=== PATIENT | female | born 1945 | race Caucasian/White ===

== ENCOUNTER 2016-07-13 21:52 | Observation (INO) | payer MEDICARE ==
[2016-07-13] MEDS ORDERED: Acetaminophen TAB* 325 MG PO PRN (23:40)
[2016-07-13] MEDS ORDERED: Morphine INJ* 2 MG/ML 1 ML CARPUJECT IV PRN (23:40)
[2016-07-13] MEDS ORDERED: Senna TAB PO PRN (23:40)
[2016-07-13] MEDS ORDERED: Ondansetron INJ* 2 MG/ML VIAL IV PRN (23:40)
[2016-07-13] MEDS ORDERED: Al Hydrox/Mg Hydrox/Simet LIQ* 30 ML UDC PO PRN (23:40)
[2016-07-13] MEDS ORDERED: Docusate CAP* 100 MG PO PRN (23:40)
[2016-07-13] MEDS ORDERED: Atorvastatin* 80 MG TAB PO ONE (23:45)
[2016-07-14 05:30] LABS: Hematocrit 36 % (35-47); Hemoglobin 12.1 g/dl (12.0-16.0); Mean Corpuscular HGB Conc 33 g/dl (31-36); Mean Corpuscular Hemoglobin 29 pg (27-31); Mean Corpuscular Volume 86 fL (80-97); Mean Platelet Volume 10 um3 (7.4-10.4); Red Blood Count 4.21 10^6/ul (4.0-5.4); Red Cell Distribution Width 14 % (10.5-15); White Blood Count 6.3 10^3/ul (3.5-10.8)
[2016-07-14 05:47] LABS: BUN/Creatinine Ratio 21.2 (8-20); EGFR African American 67.2 (>60); EGFR Non-African American 52.2 (>60); HDL Cholesterol 36.9 mg/dL; Magnesium 1.8 mg/dL (1.9-2.7); Potassium 4.2 mmol/L (3.5-5.0)
[2016-07-14 05:50] LABS: Troponin I 0.01 ng/mL (<0.04)
--- NOTE | 2016-07-14 07:26 | HP ---
HISTORY AND PHYSICAL: DATE OF ADMISSION: 07/13/16 TIME OF EVALUATION: 2300. PRIMARY CARE PHYSICIAN: Dalila Carter DO. CHIEF COMPLAINT: Chest pain. HISTORY OF PRESENT ILLNESS: This is a 70-year-old female with past medical history of coronary artery disease status post NC and PCI in August 2015, who presents from the emergency room of [facility] for ongoing chest pain and requiring an inpatient stress test. The patient was at [facility] and admitted there for ongoing chest pain. She ruled out based on EKG and troponin, but she continued to have recurrent chest pain, today it was worse. The [facility] physician, Dr. Chapman, called Dr. Duran and Dr. Syed who recommended direct admission for stress test in the morning. The patient was given morphine and a nitro paste, her chest pain has since resolved and on arrival here she denies any chest pain at this time. She states her chest pain began 4 days ago and also in her back, which was similar symptoms to when she had her NC back in August. When it started, she was sitting with her friend, it has been ongoing on and off for the past 4 days. Nothing seems to make it worse. Morphine does seem to help it; however, today the morphine did not take the edge off and nitro paste was required. The patient denies any shortness of breath. She says it is hard to take a deep breath. She has had some nausea. No diaphoresis. She denies any URI symptoms. No fevers or chills. She denies any recent exertional activity. She had increasing gas and burping a few days ago, otherwise review of systems is negative. PAST MEDICAL HISTORY: 1. Coronary artery disease status post NC in August 2015, requiring PCI with a drug-eluting stent to the mid LAD with Dr. Gonsales. She is followed by Dr. Keith. 2. Hypertension. 3. Hyperlipidemia. 4. History of atrial flutter. 5. 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 6. History of breast cancer status post left mastectomy. 7. Depression. MEDICATIONS: 1. Coumadin 5 mg daily except Sunday and it is 7.5 mg. 2. Lisinopril 5 mg daily. 3. Plavix 75 mg daily. 4. Acebutolol 200 mg p.o. b.i.d. 5. Zoloft 25 mg p.o. daily. 6. Atorvastatin 80 mg daily. 7. Aspirin 81 mg daily. ALLERGIES: CALCIUM CHANNEL BLOCKERS and CONTRAST. FAMILY HISTORY: Mother at age 93 from old age. Father at age 62 from an NC. SOCIAL HISTORY: The patient is recently . Her from cancer in August 2015. Her healthcare proxy is her daughter, Irasema Del Valle, phone number [phone]. She does have 3 children. She is a retired nurse. No history of tobacco, alcohol, or illicit drug use. Code status is full code. REVIEW OF SYSTEMS: As mentioned in the HPI. PHYSICAL EXAMINATION GENERAL: No acute distress, resting comfortably with her daughter at the bedside. VITAL SIGNS: Not currently added in the system. HEENT: Pupils equal and reactive. Anicteric. Head is normocephalic. Oropharynx: Mucous membranes are moist. No erythema or exudate. NECK: Supple. No lymphadenopathy. RESPIRATORY: Clear to auscultation. No wheezes, rhonchi, or rales. CARDIAC: Regular rate and rhythm. Soft systolic murmur heard throughout. ABDOMEN: Soft, nontender, nondistended. EXTREMITIES: No clubbing, cyanosis, or edema. +1 DPs. NEUROLOGIC: Alert and oriented x3. No focal neurologic deficits. LABORATORY DATA: From 07/13/16 from [place]: White count 6.5, hemoglobin 14.4, hematocrit 43, platelets 259. INR 1.99. Urinalysis was unremarkable. Sodium 135, potassium 4, chloride 98, bicarb 29, BUN 20, creatinine 1.2, glucose 111, troponin 0.01. LDL 127, triglycerides 218, total cholesterol 213. RADIOGRAPHIC DATA: Chest x-ray from 07/13/16 showed no active disease. EKG from [place] shows sinus rhythm with flattened T waves and inverted T waves that are unchanged from her EKG on arrival here as well, which also showed sinus rhythm. ASSESSMENT AND PLAN: This is a 70-year-old female with past medical history of coronary artery disease status post chu-LD-emvtapt myocardial infarction with a drug-eluting stent to her left anterior descending back in August 2015, who presents with recurrent atypical chest pain. Chest pain. Assessment: The patient's symptoms are atypical. She is currently chest pain free. Her EKG is unremarkable at this time. Plan: We will repeat a troponin now and in the morning. We will keep her n.p.o. after midnight for her stress test and continue her cardiac medications, which include aspirin, Plavix, acebutolol, lisinopril and her Coumadin. CHRONIC MEDICAL PROBLEMS: 1. History of atrial flutter and question of a left ventricular thrombus. Assessment: It appears that she had an echo back in May 2016 that did not visualize a thrombus. She is on aspirin, Plavix, and Coumadin. I would recommend following with Cardiology regarding continuing Coumadin if she has remained in sinus and no thrombus seen on echo. 2. Hypertension. As mentioned, continue acebutolol and lisinopril. 3. Depression. Continue Zoloft. 4. Hyperlipidemia. We will continue her atorvastatin. 5. FEN: N.p.o. after midnight. 6. DVT prophylaxis. The patient is on Coumadin. 7. Code status: Full code. PATIENT TIME: Greater than 30 minutes was spent doing the history and physical , more than half the time was spent in direct patient contact. CC: Dalila Carter DO* [id number]/CPS #: [id number] MTDAndre
[2016-07-14] MEDS ORDERED: Lisinopril TAB* 5 MG PO SCH (09:00)
[2016-07-14] MEDS ORDERED: Sertraline* 25 MG TAB PO SCH (09:00)
[2016-07-14] MEDS ORDERED: Aspirin EC Low Dose* 81 MG TAB.EC PO SCH (09:00)
[2016-07-14] MEDS ORDERED: ACEBUTOLOL 200 MG PO SCH (09:00)
[2016-07-14] MEDS ORDERED: Clopidogrel TAB* 75 MG PO SCH (09:00)
[2016-07-14] MEDS ORDERED: Aminophylline IV* 25 MG/ML 10 ML VIAL ONE (09:03)
[2016-07-14] MEDS ORDERED: Regadenoson* 0.4 MG/5 ML SYRINGE ONE (09:03)
--- NOTE | 2016-07-14 09:45 | RAD ---
Edited for charges. Indication: Chest pain. Myocardial perfusion scan was performed utilizing 1 day protocol. Rest myocardial perfusion was performed after intravenous injection of 10.8 mCi of technetium 99m tetrofosmin. Pharmacological stress was applied and 25.1 mCi of technetium 99m tetrofosmin was injected for the stress portion of the study. There is a moderate-sized apical defect noted on the rest and stress images extending into the anterior wall. There is some reversible change at the margins of this fixed defect and this likely represents a anterior apical infarct with margaret-infarct ischemia. The ejection fraction at stress is 51%. Evaluation of wall motion demonstrates anteroapical hypokinesis. IMPRESSION: Moderate-sized apical defect extending into the anterior wall consistent with anterior apical infarct with margaret-infarct ischemia. There may be some paradoxical motion of the apex. ASSESSMENT: Intermediate risk Based on imaging criteria from ACC/AHA 2002 Guideline Update for the Management of Patients With Chronic Stable Angina Table 23. Noninvasive Risk Stratification. MTDD
[2016-07-14 11:28] VITALS: BP 136/74
--- NOTE | 2016-07-14 14:28 | PN ---
Subjective Date of Service: 07/14/16 Interval History: Pt is feeling ok. She states that the chest pain has essentially resolved. She has no other complaints. Objective Active Medications: Acebutolol HCl (Sectral Cap*) 200 mg PO BID [facility] Last Admin: 07/14/16 10:16 Dose: 200 mg Acetaminophen (Tylenol Tab*) 650 mg PO Q4H PRN PRN Reason: FEVER/PAIN Al Hydrox/Mg Hydrox/Simethicone (Maalox Plus*) 30 ml PO Q6H PRN PRN Reason: INDIGESTION Aspirin (Aspirin Ec Low Dose*) 81 mg PO DAILY [facility] Last Admin: 07/14/16 10:15 Dose: 81 mg Clopidogrel Bisulfate (Plavix Tab*) 75 mg PO DAILY [facility] Last Admin: 07/14/16 10:15 Dose: 75 mg Docusate Sodium (Colace Cap*) 100 mg PO BID PRN PRN Reason: CONSTIPATION Lisinopril (Prinivil Tab*) 5 mg PO DAILY [facility] Last Admin: 07/14/16 10:15 Dose: 5 mg Morphine Sulfate (Morphine Inj (Syringe)*) 2 mg IV Q4H PRN PRN Reason: PAIN Ondansetron HCl (Zofran Inj*) 4 mg IV Q4H PRN PRN Reason: NAUSEA/VOMITING Pharmacy Profile Note (Coumadin Per Pharmacy*) 1 note FOLLOW UP .PER PHARMACY PROTOC [facility] PRN Reason: Protocol Senna (Senokot Tab*) 1 tab PO BID PRN PRN Reason: CONSTIPATION Sertraline HCl (Zoloft*) 25 mg PO DAILY [facility] Last Admin: 07/14/16 10:16 Dose: 25 mg Warfarin Sodium (Coumadin Tab(*)) 5 mg PO SuMoWeFrSa@1700 [facility] PRN Reason: Protocol Warfarin Sodium (Coumadin Tab(*)) 7.5 mg PO TuTh@1700 [facility] Vital Signs 07/13/16 07/13/16 07/14/16 23:30 23:40 00:33 Temperature 97.7 F 97.8 F Pulse Rate 66 72 Respiratory 18 16 Rate Blood Pressure 100/70 110/75 96/53 (mmHg) O2 Sat by Pulse 95 94 Oximetry 07/14/16 07/14/16 07/14/16 01:00 03:32 07:19 Temperature 97.5 F 98.2 F Pulse Rate 69 71 Respiratory 16 20 Rate Blood Pressure 110/75 97/54 133/65 (mmHg) O2 Sat by Pulse 93 97 Oximetry 07/14/16 10:53 Temperature 97.8 F Pulse Rate 77 Respiratory 18 Rate Blood Pressure 136/74 (mmHg) O2 Sat by Pulse 95 Oximetry Oxygen Devices in Use Now: None Appearance: Elderly female sitting up in bed, NAD Eyes: No Scleral Icterus Ears/Nose/Mouth/Throat: Mucous Membranes Moist Respiratory: Symmetrical Chest Expansion and Respiratory Effort, Clear to Auscultation Cardiovascular: NL Sounds; No Murmurs; No JVD, RRR, No Edema Abdominal: NL Sounds; No Tenderness; No Distention Extremities: No Clubbing, Cyanosis Skin: No Rash or Ulcers, No Nodules or Sclerosis Neurological: Alert and Oriented x 3 Result Diagrams: 07/14/16 04:58 07/14/16 04:58 Assess/Plan/Problems-Billing Ms Chopra is a 70 yo F who has a h/o CAD (s/p NM 08/2015 with stent to the LAD), HTN, hyperlipidemia and aflutter who presented to the ER at [place] with c/o chest pain that had been off and on for 4 days prior to admission and then transferred to [facility] for further evaluation. - Patient Problems (1) Chest pain Current Visit: Yes Status: Acute Code(s): R07.9 - CHEST PAIN, UNSPECIFIED SNOMED Code(s): 18751664 Comment: Etiology is unclear. Stress test was negative for ischemia. Old infarct was noted though this was c/w her previous NM. She will continue on her usual home regimen and follow up with Dr. Keith in 1-2 weeks. (2) CAD (coronary artery disease) Current Visit: Yes Status: Acute Code(s): I25.10 - ATHSCL HEART DISEASE OF [place] CORONARY ARTERY W/O ANG PCTRS SNOMED Code(s): 95759886 Comment: No signs of NM this admission. Continue home medication regimen. Follow up with Dr. Keith as an outpatient. (3) Hypertension Current Visit: Yes Status: Acute Code(s): I10 - ESSENTIAL (PRIMARY) HYPERTENSION SNOMED Code(s): 59753401 Comment: BP is under good control on her home regimen. Continue to monitor. (4) Atrial flutter Current Visit: Yes Status: Acute Code(s): I48.92 - UNSPECIFIED ATRIAL FLUTTER SNOMED Code(s): 3676544 Comment: No signs of aflutter this admission. Continue coumadin-INR is therapeutic. (5) DVT prophylaxis Current Visit: Yes Status: Acute Code(s): HDF5917 - SNOMED Code(s): 129632699 Comment: therapeutic INR (6) Full code status Current Visit: Yes Status: Acute Code(s): Z78.9 - OTHER SPECIFIED HEALTH STATUS SNOMED Code(s): 588184274 Status and Disposition: d/c home
[2016-07-14] MEDS ORDERED: Warfarin TAB(*) 5 MG PO SCH (17:00)
--- NOTE | 2016-07-15 14:11 | DS ---
DISCHARGE SUMMARY: DATE OF ADMISSION: 07/13/16 DATE OF DISCHARGE: 07/14/16 PRIMARY CARE PROVIDER: Dr. Carter. PRINCIPAL DIAGNOSIS: Chest pain of unclear etiology. SECONDARY DIAGNOSES: 1. Atrial flutter. 2. Hypertension. 3. Coronary artery disease. 4. Depression. DISCHARGE MEDICATIONS: 1. Coumadin 7.5 mg p.o. Sunday, ; 5 mg all other days of the week. 2. Lisinopril 10 mg p.o. daily. 3. Lipitor 80 mg p.o. daily. 4. Aspirin 81 mg p.o. daily. 5. Sectral 200 mg p.o. daily. 6. Zoloft 25 mg p.o. daily. 7. Ativan 0.25 mg p.o. q.12 hours p.r.n. anxiety. 8. Plavix 75 mg p.o. daily. HOSPITAL COURSE: Ms. Chopra is a 70-year-old female who has a known history of coronary artery disease, status post stenting to the LAD in August 2015 for a non- ST elevation CO, who presented to the emergency room with complaints of chest pain. The patient initially presented to [facility], was subsequently transferred to [facility] for stress testing. The patient had ruled out for CO. She underwent a nuclear stress test on 07/14/16, which revealed moderate-sized apical defect extending into the anterior wall consistent with anterior apical infarct with margaret- infarct ischemia. The patient previously had an CO due to LAD lesion. This distribution is consistent with that. I did speak with Dr. Keith, the patient's usual nutrition therapist, about this stress test. The decision was made to discharge the patient home and have her follow up with him in the next couple of weeks. She has been instructed to return to the emergency room if she has any further concerning chest pain or any other concerning issues. FOLLOWUP CONCERNS: The patient is being discharged to home today, 07/14/16. She is to follow up with Dr. Carter in the next 4 to [address] Keith in the next 1 to 2 weeks. ACTIVITY LEVEL: As tolerated. DIET: Low-fat. CONDITION ON DISCHARGE: Stable. TIME SPENT: Twenty five minutes were spent discharging this patient. CC: Dr. Carter; Dr. Keith* [id number]/[facility] #: [id number] NORTHWELL HEALTHAndre
[2016-07-18] MEDS ORDERED: Warfarin TAB(*) 7.5 MG PO SCH (17:00)
== END 2016-07-14 15:30 | disposition home or self-care (01) ==
LOC: MEDTELE 23:01 → INTOOBSV 23:01
PROVIDERS: ADMIT Pediatrics; ATTEND Hospitalist
DX: R07.9 Chest pain, unspecified (principal); I48.92 Unspecified atrial flutter; Z79.01 Long term (current) use of anticoagulants; I10 Essential (primary) hypertension; I25.10 Atherosclerotic heart disease of native coronary artery without angina pectoris; E78.5 Hyperlipidemia, unspecified; F32.9 Major depressive disorder, single episode, unspecified; R94.31 Abnormal electrocardiogram [ECG] [EKG]; Z86.718 Personal history of other venous thrombosis and embolism; Z85.3 Personal history of malignant neoplasm of breast; Z79.899 Other long term (current) drug therapy; Z88.8 Allergy status to other drugs, medicaments and biological substances; Z91.041 Radiographic dye allergy status
CPT/HCPCS: 36415; 78452; 80048; 80061; 83735; 84484; 85025; 85610; 93005; 93017; A9270-GY; A9502; G0378; J0280; J2785

== ENCOUNTER 2017-05-02 02:05 | Observation (INO) | payer MEDICARE ==
[2017-05-02] MEDS ORDERED: Aspirin Low Dose CHEW TAB* 81 MG PO ONE (04:57)
--- NOTE | 2017-05-02 05:17 | ED ---
Sung Perry Abhishek, scribed for Tyson Stewart MD on 05/02/17 at 0451 . HPI Chest Pain - HPI Summary HPI Summary: This patient is a 71 year old F presenting to [facility] from [facility] accompanied by two females with a chief complaint of CP since 1600 since yesterday. Pt states It felt like someone was squeezing my chest. The CC is described as intermittent and improved since onset. The patient rates the pain 0 /10 in severity. Symptoms aggravated by nothing. Symptoms alleviated by NTG. Patient reports back pain yesterday and coughing. Patient denies SOB currently, edema in the lower extremities. PMHx includes CAD, MD, denies CHF, DM, COPD. SHx no alcohol and no smoking - History of Current Complaint Chief Complaint: EDChestPainROMI Hx Obtained From: Patient Onset/Duration: Started Hours Ago - since 1600 yesterday Timing: Intermittent Current Severity: None Pain Intensity: 0 Pain Scale Used: 0-10 Numeric Aggravating Factor(s): Nothing Alleviating Factor(s): NTG 123 Associated Signs and Symptoms: Positive: Cough, Other: - back pain, and negative edema in the lower extremities.. Negative: Chest Pain, Shortness of Breath - back pain and negative edema in all lower extremities - Additional Pertinent History Primary Care Physician: [id number] - Allergy/Home Medications Allergies/Adverse Reactions: Allergies Allergy/AdvReac Type Severity Reaction Status Date / Time Calcium Channel Blockers Allergy chest pain Verified 08/12/15 04:12 Iodinated Diagnostic Agents Allergy Unknown Verified 08/12/15 04:12 Reaction Details PMH/Surg Hx/FS Hx/Imm Hx Cardiovascular History: Reports: Hx Angina, Hx Coronary Artery Disease, Hx Hypercholesterolemia, Hx Hypertension - W/MEDS, Hx Myocardial Infarction, Other Cardiovascular Problems/Disorders - EPS DONE FOR MITRAL VALVE PROLAPSE 2014 Musculoskeletal History: Reports: Hx Arthritis Comment Only: Other Musculoskeletal History - bilateral knee replacement Sensory History: Reports: Hx Contacts or Glasses Opthamlomology History: Reports: Hx Contacts or Glasses Psychiatric History: Reports: Hx Depression - Cancer History Cancer Type, Location and Year: breast CA - Surgical History Surgery Procedure, Year, and Place: left masectomy Infectious Disease History: No Infectious Disease History: Denies: Traveled Outside the [place] in Last 30 Days - Social History Occupation: Retired Alcohol Use: Rare Hx Substance Use: No Substance Use Type: Reports: None Hx Tobacco Use: No Smoking Status (MU): Never Smoked Tobacco Review of Systems Constitutional: Negative Eyes: Negative ENT: Negative Positive: Chest Pain Positive: Cough. Negative: Shortness Of Breath Genitourinary: Negative Positive: Other - back pain, and negative edema in the lower extremieties Skin: Negative Neurological: Negative Psychological: Normal All Other Systems Reviewed And Are Negative: Yes Physical Exam - Summary Physical Exam Summary: Appearance: Well-appearing, Well-nourished Skin: Warm Eyes: Normal ENT: Normal Neck: Supple, nontender Respiratory: Clear to auscultation, Normal lung sounds Cardiovascular: Normal, Normal heart sounds Abdomen: Soft, nontender Bowel: Present Musculoskeletal: Normal, Strength/ROM Intact, No pitting edema in the lower extremities Neurological: Normal, Alert, Oriented to Person, Normal affect Psychiatric: Normal Triage Information Reviewed: Yes Vital Signs On Initial Exam: Initial Vitals Temp Pulse Resp BP Pulse Ox 97.4 F 68 20 129/72 96 05/02/17 02:22 05/02/17 02:22 05/02/17 02:22 05/02/17 02:22 05/02/17 02:22 Vital Signs Reviewed: Yes - Soldier Coma Scale Coma Scale Total: 15 Diagnostics - Vital Signs Vital Signs Temp Pulse Resp BP Pulse Ox 05/02/17 02:22 97.4 F 68 20 129/72 96 - Laboratory Lab Statement: Any lab studies that have been ordered have been reviewed, and results considered in the medical decision making process. Chest Pain Course/Dx - Diagnoses Provider Diagnoses: Chest pain - Provider Notifications Discussed Care Of Patient With: Loco Lincoln Discharge - Discharge Plan Condition: Good Disposition: ADMITTED TO [facility] documentation as recorded by the Sung looney Abhishek accurately reflects the service I personally performed and the decisions made by , Tyson Stewart MD.
[2017-05-02] MEDS ORDERED: Ondansetron INJ* 2 MG/ML VIAL IV PRN (05:18)
[2017-05-02] MEDS ORDERED: Acetaminophen TAB* 325 MG PO PRN (05:18)
[2017-05-02] MEDS ORDERED: LORazepam TAB(*) 0.5 MG PO PRN (05:19)
[2017-05-02] MEDS ORDERED: NS 0.9% 1000 ML* 1,000 ML IV SCH (05:30)
[2017-05-02] MEDS ORDERED: Nitroglycerin 2% OINT* 1 GM PAK ONE (05:52)
[2017-05-02] MEDS ORDERED: Nitroglycerin TAB 0.4 MG* 0.4 MG TAB ONE (05:52)
[2017-05-02] MEDS ORDERED: Nitroglycerin TAB 0.4 MG* 0.4 MG TAB SL ONE (05:54)
[2017-05-02] MEDS ORDERED: Nitroglycerin 2% OINT* 1 GM PAK TOPICAL ONE (05:54)
[2017-05-02 05:55] LABS: Hematocrit 38 % (35-47); Hemoglobin 12.6 g/dl (12.0-16.0); Mean Corpuscular HGB Conc 33 g/dl (31-36); Mean Corpuscular Hemoglobin 28 pg (27-31); Mean Corpuscular Volume 85 fL (80-97); Mean Platelet Volume 10 um3 (7.4-10.4); Red Blood Count 4.45 10^6/ul (4.0-5.4); Red Cell Distribution Width 14 % (10.5-15); White Blood Count 7.5 10^3/ul (3.5-10.8)
[2017-05-02] MEDS ORDERED: CMCS Pantoprazole TAB (NF) 40 MG TAB PO SCH (06:00)
[2017-05-02 06:12] LABS: Troponin I 0.01 ng/mL (<0.04)
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
[2017-05-02 07:21] LABS: BUN/Creatinine Ratio 16.1 (8-20); Calcium 9.5 mg/dL (8.6-10.3); EGFR African American 76.2 (>60); EGFR Non-African American 59.3 (>60); Globulin 3.5 g/dL (2-4); Potassium 4.1 mmol/L (3.5-5.0); Total Bilirubin 1.3 mg/dL (0.2-1.0); Total Protein 7.5 g/dL (6.4-8.9)
[2017-05-02] MEDS ORDERED: Heparin DRIP 25,000 UNITS(*) 25,000 UNITS/500 ML BAG IV SCH (07:30)
[2017-05-02] MEDS ORDERED: Lidocaine 2% VISCOUS* 15 ML UDC PO ONE (07:47)
[2017-05-02] MEDS ORDERED: Al Hydrox/Mg Hydrox/Simet LIQ* 30 ML UDC PO ONE (07:47)
[2017-05-02] MEDS ORDERED: Nitroglycerin 2% OINT* 1 GM PAK TOPICAL SCH (08:00)
[2017-05-02] MEDS ORDERED: Heparin VIAL(*) 5000 UNITS/ML VIAL (FIVE THOUSAND) IV SCH (08:00)
[2017-05-02] MEDS ORDERED: Aspirin EC Low Dose* 81 MG TAB.EC PO SCH (09:00)
[2017-05-02] MEDS ORDERED: Sertraline* 25 MG TAB PO SCH (09:00)
[2017-05-02] MEDS ORDERED: Clopidogrel TAB* 75 MG PO SCH (09:00)
[2017-05-02] MEDS ORDERED: Lisinopril TAB* 10 MG PO SCH (09:00)
[2017-05-02] MEDS ORDERED: Docusate CAP* 100 MG PO SCH (09:00)
[2017-05-02] MEDS ORDERED: ACEBUTOLOL 200 MG PO SCH (09:00)
[2017-05-02] MEDS ORDERED: Perflutren Lipid Microsphere* 3 ML VIAL ONE (09:10)
--- NOTE | 2017-05-02 10:19 | ECHO ---
Patient: PARVIZ MONTOYA [facility] Rec#: [id number] : 1945 Date: 05/02/2017 Age: 71y Height: 157.48 cm / 62.0 in Weight: 77.11 kg / 170.0 lbs Sex: F BSA: 1.78 Room#: [facility] Admit Date#: 05/02/2017 Type: Inpatient Referring: Loco Lincoln MD Reading: Jazmín Sauceda MD Planning Feeder: Tianna Lino RDCS CC: Dalila Carter, DO Transthoracic Echocardiogram Indication: Unstable angina BP: 137/78 HR: 68 Rhythm: NSR Findings History: CAD s/p PCI, stent occulusion, HTN, HLD, breast cancer, s/p left mastectomy, chemotherapy. Technical Comments: The study is technically difficult. The study is technically limited due to poor parasternal windows. Completed at 1015. Left Ventricle: The left ventricular chamber size is normal. Mild concentric left ventricular hypertrophy is observed. There is a focal wall motion abnormality present.Apical 1/3 of the septum and posterior wall. There is mildly decreased left ventricular systolic function. The estimated ejection fraction is 40-45%. The assessment of diastolic function is non-diagnostic. Left Atrium: The left atrium is moderately dilated. Right Ventricle: Moderator Band present. The right ventricular cavity size is normal. The right ventricular global systolic function is normal. Right Atrium: The right atrium is moderately dilated. Aortic Valve: The aortic valve is trileaflet. The aortic valve leaflets are mildly thickened. There is a trace of aortic regurgitation. There is no evidence of aortic stenosis. Mitral Valve: There is mitral annular calcification. The mitral valve leaflets are mildly thickened. There is mild to moderate mitral regurgitation. There is no evidence of mitral stenosis. Tricuspid Valve: The tricuspid valve leaflets are mildly thickened. There is mild tricuspid regurgitation. The right ventricular systolic pressure is estimated at 42 mmHg. There is evidence of mild pulmonary hypertension. There is no tricuspid stenosis. Pulmonic Valve: The pulmonic valve structure is not well visualized. There is no pulmonic stenosis. Pericardium: There is no significant pericardial effusion. A pericardial fat pad is visualized. Aorta: There is no dilatation of the ascending aorta. There is no dilatation of the aortic arch. The aortic root is normal in size. Pulmonary Artery: The main pulmonary artery is not well visualized. Venous: The inferior vena cava is dilated. There is a greater than 50% respiratory change in the inferior vena cava dimension. Contrast: Definity was used to optimize study. 6 mL of diluted Definity was utilized. Intravenous contrast was used to enhance endocardial border definition. Conclusions Mild concentric left ventricular hypertrophy is observed. There is a focal wall motion abnormality present.Apical 1/3 of the septum and posterior wall. The estimated ejection fraction is 40-45%. The right ventricular global systolic function is normal. The left atrium is moderately dilated. The right atrium is moderately dilated. There is aortic valve sclerosis with trace aortic regurgitation. There is mild to moderate mitral regurgitation. There is mild tricuspid regurgitation. The right ventricular systolic pressure is estimated at 42 mmHg. Compared with limited study o 05/10/16, EF and apical wall motion abnormality unchanged. Measurements Name Value Normal Range RVIDd (AP) 2D 2.8 cm (0.9 - 2.6) RVDdMajor (2D) 3.3 cm (2.2 - 4.4) RAd ISD 4CH 5.8 cm (3.4 - 4.9) RA (A4C)W 4 cm (2.9 - 4.6) IVSd (2D) 1.1 cm (0.6 - 1) LVPWd (2D) 1.1 cm (0.6 - 1) LVIDd (2D) 4.2 cm (3.6 - 5.4) LVIDs (2D) 3.1 cm - LV FS (2D) 26 % (25 - 45) Aortic Annulus 1.8 cm (1.4 - 2.6) Ao root diameter (2D) 3 cm (2.1 - 3.5) Ascending Ao 3.3 cm (2.1 - 3.4) Aortic arch 2.4 cm (1.8 - 3.4) LA dimension (AP) 2D 3.7 cm (2.3 - 3.8) LAd ISD 4CH 6.2 cm (2.9 - 5.3) LA ISD 4CH W 4.3 cm (2.5 - 4.5) Name Value Normal Range LA ESV SP 4CH (A/L) 68 ml - LA ESV SP 2CH (A/L) 79 ml - LA ESV BP (A/L) 75 ml - LA ESV BP (A/L) index 42 ml/m2 - LA ESV SP 4CH (MOD) 65 ml - LA ESV SP 2CH (MOD) 70 ml - Name Value Normal Range MV E-wave Vmax 0.9 m/sec - MV deceleration time 293.2 msec - MV A-wave Vmax 0.74 m/sec - MV E:A ratio 1.21 ratio - LV septal e' Vmax 0.05 m/sec - LV lateral e' Vmax 0.08 m/sec - LV E:e' septal ratio 18 ratio - LV E:e' lateral ratio 11.25 ratio - Name Value Normal Range AV Vmax 1.2 m/sec - AV VTI 25.7 cm - AV peak gradient 5.82 mmHg - AV mean gradient 3.77 mmHg - LVOT Vmax 1.06 m/sec - LVOT VTI 22.67 cm - LVOT peak gradient 4.55 mmHg - LVOT mean gradient 2.2 mmHg - DAPHNE Vmax 0.54 m/sec - Name Value Normal Range TR Vmax 2.6 m/sec - TR peak gradient 27 mmHg - RAP 15 mmHg - RVSP 42 mmHg - IVC diameter 2.1 cm - Name Value Normal Range PV Vmax 0.8 m/sec - PV peak gradient 2.53 mmHg -
[2017-05-02] MEDS ORDERED: Aminophylline IV* 25 MG/ML 10 ML VIAL ONE (10:56)
[2017-05-02] MEDS ORDERED: Regadenoson* 0.4 MG/5 ML SYRINGE ONE (10:56)
--- NOTE | 2017-05-02 13:03 | RAD ---
HISTORY: Chest pain, shortness of breath, hypertension, hyperlipidemia, previous TX, history of heart disease COMPARISONS: July 14, 2016 TECHNIQUE: A 1 day stress/rest myocardial perfusion study was performed, with pharmacologic stress. The stress portion was monitored by Dr. Gonsales. Gated SPECT imaging was performed, with CT-based attenuation correction DOSE: Stress: Technetium 99m tetrofosmin, 25.53 millicuries, injected at 11:24 AM on May 02, 2017 Rest: Technetium 99m tetrofosmin, 10.1 millicuries, injected at 6:58 AM on May 02, 2017 Pharmacologic agent: Lexiscan FINDINGS: CARDIAC MONITORING: Baseline EKG changes preclude evaluation for ischemia EF: 52 % TID: 1.13 MOTION: There is septal hypokinesia. There is mild lateral and septal dyskinesia. PERFUSION: Again noted is a moderate-sized fixed defect centered on the apex similar in appearance to the July 14, 2016 examination. There is marginal reversibility on the attenuation corrected images which likely reflects misregistration artifact. OTHER: None IMPRESSION: AGAIN NOTED IS A FIXED DEFECT OF THE APEX CONSISTENT WITH PREVIOUS INFARCT ASSESSMENT: HIGH RISK. Based on imaging criteria from ACC/AHA 2002. Guideline Update for the Management of Patient's with Chronic Stable Angina, table 23. Noninvasive Risk Stratification. CPT II Codes: 3570F
[2017-05-02 15:53] VITALS: BP 115/68
--- NOTE | 2017-05-02 16:15 | PN ---
Subjective Date of Service: 05/02/17 Interval History: Patient seen and examined at bedside. Patient currently denies any chest pain although she states approximately 30 minutes ago she had some dull pain that was self limiting. She states the pain that brought her in started at 4pm yesterday and did not really go away until she had the GI cocktail this morning. She also had two doses of morphine on two different occasions. She states the pain felt similar to the pain she had during her heart attack. She was here in July for similar pain and had a stress test and was discharge. Family History: Unchanged from Admission Social History: Unchanged from Admission Past Medical History: Unchanged from Admission Objective Active Medications: Acebutolol HCl (Sectral Cap*) 200 mg PO DAILY [facility] Acetaminophen (Tylenol Tab*) 650 mg PO Q6H PRN Aspirin (Aspirin Ec Low Dose*) 81 mg PO DAILY [facility] Atorvastatin Calcium (Lipitor*) 80 mg PO 1700 [facility] Clopidogrel Bisulfate (Plavix Tab*) 75 mg PO DAILY [facility] Docusate Sodium (Colace Cap*) 200 mg PO BID [facility] Heparin Sodium (Porcine) (Heparin Vial(*)) 0 units IV .PER PROTOCOL [facility] Heparin Sodium/Dextrose (Heparin Drip 25,000 Units(*)) 25,000 units in 500 mls @ 0 mls/hr IV .NO INITIAL BOLUS CHELITA; As Directed Lisinopril (Prinivil Tab*) 10 mg PO DAILY CHELITA Lorazepam (Ativan Tab(*)) 0.25 mg PO Q12H PRN Ondansetron HCl (Zofran Inj*) 4 mg IV Q6H PRN Pantoprazole Sodium (Protonix Tab (Nf)) 20 mg PO DAILY@0600 [facility] Sertraline HCl (Zoloft*) 25 mg PO DAILY [facility] 05/02/17 05/02/17 05/02/17 10:00 13:12 15:47 Temperature 98.0 F 97.5 F Pulse Rate 79 79 Respiratory 18 16 Rate Blood Pressure 106/60 133/81 115/68 (mmHg) O2 Sat by Pulse 96 95 Oximetry Oxygen Devices in Use Now: None Appearance: sitting up in bed, NAD Eyes: No Scleral Icterus, PERRLA Ears/Nose/Mouth/Throat: NL Teeth, Lips, Gums Neck: NL Appearance and Movements; NL JVP Respiratory: Symmetrical Chest Expansion and Respiratory Effort, Clear to Auscultation Cardiovascular: NL Sounds; No Murmurs; No JVD, RRR Abdominal: NL Sounds; No Tenderness; No Distention Extremities: No Edema Skin: No Rash or Ulcers Neurological: Alert and Oriented x 3, NL Muscle Strength and Tone Lines/Tubes/Other Access: Clean, Dry and Intact Peripheral IV Nutrition: Taking PO's Result Diagrams: 05/02/17 05:25 05/02/17 05:25 Assess/Plan/Problems-Billing Patient is a 71 y/o F w/ PMH significant for CAD s/p stenting of the LAD in 2015 who presented to [facility] and transferred here for chest pain. - Patient Problems (1) Chest pain Comment: Etiology is unclear. EKG unchaged and troponins negative. Stress test showed fixed defect. Old infarct noted which is c/w previous stress test and location of previous UT. Will d/w with cardiology for further medication recommendations prior to discharge. (2) CAD (coronary artery disease) Comment: No signs of UT thus far. D/c heparin drip. Continue beta va, ASA , and Plavix. (3) Hypertension Comment: Controlled. Continue Lisinopril and Acebutolol. (4) Atrial flutter Comment: No signs of aflutter this admission. Continue coumadin-INR is therapeutic. (5) DVT prophylaxis Comment: therapeutic INR; Continue warfarin. (6) Full code status Status and Disposition: OBV for chest pain. Will d/w cardiology and possibly discharge later today.
[2017-05-02] MEDS ORDERED: Warfarin TAB(*) 5 MG PO SCH (17:00)
[2017-05-02] MEDS ORDERED: Atorvastatin* 80 MG TAB PO SCH (17:00)
[2017-05-02] MEDS ORDERED: Warfarin TAB(*) 5 MG PO ONE (17:30)
[2017-05-02 18:22] LABS: HDL Cholesterol 44.1 mg/dL
--- NOTE | 2017-05-02 21:35 | CONS ---
CC: Dr. Dalila Carter in [facility]; Dr. Keith* CONSULTATION REPORT: DATE OF CONSULT: 05/02/17 PRIMARY CARE PHYSICIAN: Dr. Dalila Carter in [facility]. CONSTRUCTION MANAGER: Dr. Keith. REASON FOR CONSULTATION: Chest pain and coronary disease. CHIEF COMPLAINT: Left-sided chest pain. HISTORY OF PRESENT ILLNESS: Mrs. Chopra is a 71-year-old woman with known atherosclerotic heart disease and stents in the past. In the morning, I saw the patient twice, first thing in the morning and then later in the day. In the morning, she said she had just been sitting there yesterday and developed acute onset of left-sided chest pain that radiated to the left axilla and back, which she felt was the same pain she had had prior to her stents. It was associated with some nausea. The patient was treated with Morphine and nitroglycerin with improvement, but no resolution of the pain. This morning, the patient has had a GI cocktail given after I saw her and her pain was gone when I saw her later in the day following the GI cocktail and lunch. The patient denies any recent changes in medications. She denies taking any nonsteroidals. She told me she was given a prescription for Prilosec and filled it, but never started it because she did not feel she ever needed it. She then said in the afternoon that in hindsight these symptoms that has been going on 2 to 3 days prior to yesterday and again she denied any positional or activity induced or pleuritic component to the symptoms. PAST MEDICAL HISTORY: 1. Coronary artery disease (cardiac catheterization in 08/12/15 for stenting to the left anterior descending). 2. Hypertension. 3. Hyperlipidemia. 4. Left breast cancer, status post mastectomy and chemotherapy. 5. Paroxysmal atrial flutter. 6. Left ventricular apical thrombus. 7. Depression. MEDICATIONS: Current inpatient medications include: 1. Acebutolol 200 mg a day. 2. Tylenol p.r.n. 3. Aspirin 81 mg a day. 4. Lipitor 80 mg a day. 5. Plavix 75 mg a day. 6. Colace 200 mg b.i.d. 7. Lisinopril 10 mg a day. 8. Ativan p.r.n. 9. Zofran p.r.n. 10. Protonix 200 mg a day, started this morning. 11. Zoloft 25 mg a day. ALLERGIES: Include CALCIUM CHANNEL BLOCKERS and IV CONTRAST DYE. FAMILY HISTORY: Significant that her mother at age 93 and father at age 62 of a heart attack. SOCIAL HISTORY: The patient is . She lives with daughter, Yuridia Del Valle and other children who are supportive. The patient is a retired nurse. Nonsmoker. No history of alcohol or recreational drug use. REVIEW OF SYSTEMS: A 12-point review of systems was performed, as per history of present illness possibly up to 2 days of chest discomfort, left chest radiating to the axilla and back like somebody is squeezing her, associated with nausea. Negative orthopnea, PND, or diaphoresis. No exercise induced changes in how she feels. She did do some manual labor over the weekend, but she did not think it was excessive. No recent changes in medications. She denies fevers, chills, sweats, change in bowel or bladder habits, and all other 12-point review of systems was unremarkable. PHYSICAL EXAM: On exam, the patient is 5 feet 2 inches, weighs 174 pounds with a BMI of 32. Vital Signs: On arrival to the emergency department, blood pressure 129/72, pulse was 68 and regular. Currently, blood pressure is 115/68 , pulse is 84 and regular, oxygen saturation is 95% on room air, and she is afebrile at 97.5 degrees Fahrenheit. General Appearance: Somewhat overweight, older woman, in no acute distress. Psychologically, pleasant and cooperative. This morning, she did appear to be uncomfortable. This afternoon, she appeared completely pain free. Skin: Very verdin, warm, dry, age-appropriate changes. No cyanosis or rashes. HEENT: Pupils are equal and round. Mucous membranes moist. Neck: Without increased JVP, although obese. No thyromegaly or lymphadenopathy appreciated. Good carotid pulses without audible bruits. Breath sounds were clear with good effort. No wheezes, rales, or rhonchi. Chest and Coronary: S1 and S2, regular without murmurs or rubs. No chest tenderness reproduced with palpation and no epigastric discomfort. Abdomen: Soft, nontender as above, and no hepatosplenomegaly. Lower extremities were free of edema with palpable posterior tibial pulses. DIAGNOSTIC STUDIES/LAB DATA: White count 7.5, hemoglobin 12.6, hematocrit 38, platelets 173. INR of 2. Sodium 136, potassium 4.1, glucose 124, BUN 15, creatinine 0.93, total bili 1.3. AST of 117, ALT 62. Troponin #1, 0.01; #2, 0.02; #3, 0.01. ECG on arrival showed a normal sinus rhythm,88 beats a minute with a QRS axis of 0, normal AV and IV conduction time with biphasic and flattened T-waves across the precordial leads and this morning the T-waves were inverted, but when compared with the baseline EKG in July 2016, the T-waves inversions have improved. IMPRESSION: In summary, Nora Chopra is a 71-year-old woman with history of coronary artery disease and stenting to the LAD in 2015 presenting with chest pain that she felt was her angina. She had an abnormal ECG at baseline without significant changes and serial troponins were normal. A decision was made to proceed with a chemical stress test and this too was reassuring showing a fixed apical defect and no evidence of significant ischemia. Her ejection fraction was estimated 52%. An echo had been done at the bedside with pain early in the morning, and I was present for this and this also showed an area in the apex of akinesis at the base of the septum and posterior wall. No evidence of thrombus was seen and the patient's ejection fraction was estimated at 45% to 50%, she had mild-to- moderate mitral insufficiency and mild tricuspid insufficiency and a PA pressure of 42 mmHg. I do not feel this pain was ischemic. I doubt that based on her labs and history that her increased LFTs are related to decompensated failure. She has only a mild elevation in PA pressure. I do not feel Mrs. Chopra needs to proceed with cardiac catheterization. A differential for non-cardiac etiologies will include reflux and I discussed a 1- month trial of Prilosec, the patient is not interested as she thinks that it is not her heart, it is musculoskeletal. The increased LFTs may represent some sort of cholestatic process or a side effect from her statins and should be followed up on. Mild elevation in PA pressures are noted and with her old infarction and mild-to - moderate cardiomyopathy, you may want to consider low-dose diuretics, perhaps just once or twice a week would be enough but certainly avoid prepared foods and excessive salt. Reassurance was provided to Mrs. Chopra about the findings on the testing with respect to her heart. [id number]/[facility] #: [id number] SHEBA
--- NOTE | 2017-05-03 04:40 | DS ---
CC: Dr. Carter; Dr. Keith* DISCHARGE SUMMARY: DATE OF ADMISSION: 05/02/17 DATE OF DISCHARGE: 05/02/17 PRIMARY CARE PROVIDER: Dr. Carter. ICT ANALYST: Dr. Keith. ATTENDING PHYSICIAN: Errol Edge MD* (report dictated by Gina Mancini NP). REASON FOR OBSERVATION: Chest pain. Elevated transaminases. SECONDARY DIAGNOSES: 1. Coronary artery disease. 2. Hypertension. 3. Hyperlipidemia. 4. Left breast cancer. STUDIES WHILE IN THE HOSPITAL: 1. Nuclear cardiac stress test 05/02/17. Again noted is a fixed defect at the apex consistent with previous infarct. 2. Transthoracic echocardiogram. Mild concentric left ventricular hypertrophy is observed. There is focal wall-motion abnormality present in apical one third of the septum and posterior wall. The estimated ejection fraction is 40% to 45%. The right ventricular global systolic function is normal. The left atrium is moderately dilated. Right atrium is moderately dilated. There is aortic valve sclerosis with trace aortic regurgitation. There is mild to moderate mitral regurgitation. There is moderate tricuspid regurgitation. The right ventricular systolic pressure is estimated at 42 mmHg. Compared to prior apical wall motion abnormality unchanged. MEDICATIONS AT THE TIME OF DISCHARGE: New Medication: Protonix 40 mg oral daily. Following medications are medications the patient came in on: 1. Zoloft 25 mg oral daily. 2. Acebutolol 200 mg oral daily. 3. Ativan 0.5 mg oral every 12 hours as needed. 4. Aspirin 81 mg oral daily. 5. Lipitor 80 mg oral 1700. 6. Lisinopril 10 mg oral daily. 7. Plavix 75 mg oral daily. 8. Warfarin 5 mg oral mg oral Sunday, Sunday, Sunday, Sunday, and Sunday and 7.5 mg oral Sunday and . HISTORY OF PRESENT ILLNESS AND HOSPITAL COURSE: Ms. Chopra is a 71-year-old female with a history of coronary artery disease status post ID with stenting in August 2015 who presented to [place] emergency room on 05/01/17 with a complaint of left chest pressure radiating through the back while sitting at home. She had mild nausea. She went to [place] [facility] and received nitro and morphine which helped with the pain. Troponin was negative and she was transferred here for further evaluation. In the emergency room, she was started on a low dose heparin drip. She was seen in consultation by Dr. Jazmín Sauceda, please refer to his dictation for detail. She had a transthoracic echocardiogram which did not show any new wall motion defects. The patient had 2 additional troponins that were both negative. EKG was unchanged from prior. The patient had a nuclear cardiac stress test that showed a fixed defect in the apex that is unchanged from her prior nuclear cardiac stress test. The patient was also here in July for similar chest pain of unknown etiology. Upon further discussion with the patient, the patient did admit to approximately a year ago being asked to take Prilosec from her primary care provider. It is possible this is musculoskeletal pain as she has arthritis or reflux, and I have instructed her to start taking Protonix instead of Prilosec because of its interaction with Plavix. Her chest pain eventually resolved with a GI cocktail consistent of lidocaine and Maalox. In addition, the patient was found to have slightly elevated liver tests with a bilirubin of 1.3, AST of 117, ALT 62. She has been taking a fair amount of Tylenol for her arthritis and I have instructed her to decrease her extra strength Tylenol to once or twice a day if needed. LDL is still greater than 100 but if her transaminitis persists then her statin dose could be decreased The patient should have a followup complete metabolic panel with liver tests on 05/07/17 at [facility] with the results to Dr. Carter. DISCHARGE PLANS: The patient is being discharged on a heart-healthy diet with activity as tolerated. The patient has been instructed to follow up with a primary care provider within 4 to 7 days and have a complete metabolic panel drawn on Sunday. The patient has been instructed to return to the hospital if she experiences any chest pain and shortness of breath. I have reviewed all these instructions with the patient and she is agreeable with her discharge today. This is a summarized report of a complex medical history and hospital stay. For more details, see the entire medical record. TIME SPENT: Time for this discharge was 50 minutes and 25 minutes were spent with the patient discussing the medications and discharge and followup instructions. CONDITION ON DISCHARGE: Stable. Reviewed by GINA MANCINI NP 05/05/2017 [id number]/[facility] #: [id number] SHEBA
[2017-05-03] MEDS ORDERED: Warfarin TAB(*) 7.5 MG PO SCH (17:00)
== END 2017-05-02 18:30 | disposition home or self-care (01) ==
LOC: ED 02:05 → MEDTELE 05:16
PROVIDERS: ADMIT Hospitalist; ATTEND Hospitalist
DX: R07.9 Chest pain, unspecified (principal); R74.0 Nonspecific elevation of levels of transaminase and lactic acid dehydrogenase [LDH]; I25.110 Atherosclerotic heart disease of native coronary artery with unstable angina pectoris; I10 Essential (primary) hypertension; E78.5 Hyperlipidemia, unspecified; I48.92 Unspecified atrial flutter; I51.7 Cardiomegaly; Z85.3 Personal history of malignant neoplasm of breast; Z79.01 Long term (current) use of anticoagulants; Z79.82 Long term (current) use of aspirin; Z79.899 Other long term (current) drug therapy; Z88.8 Allergy status to other drugs, medicaments and biological substances; R11.0 Nausea; R94.31 Abnormal electrocardiogram [ECG] [EKG]
CPT/HCPCS: 36415; 78452; 80053; 80061; 83735; 83880; 84484; 85025; 85610; 85730; 93005; 93017; 93306; 96365; 96366; 99284; A9270-GY; A9502; C8929; G0378; J0280; J2785

== ENCOUNTER 2019-07-20 11:34 | Observation (INO) | payer MEDICARE ==
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
--- OUTSIDE RECORDS SUMMARY | 2019-07-20 11:50 | XMS REPORT | Continuity of Care Document ---
:1945 External Reference #:[id number] Author Name Darline Marino Care Team Providers Name Role Phone Dalila Carter, - Family Care Team Information Smocker [phone] Medicine Problems Active Problems Provider Date Candidal otitis externa Raymundo Carbajal M.D. Onset: 03/21/2017 Otalgia Raymundo Carbajal M.D. Onset: 03/21/2017 Left temporomandibular joint disorder Raymundo Carbajal M.D. Onset: 2016 Closed fracture of surgical neck of Ephraim Hanna M.D. Onset: 07/10/2017 humerus Closed fracture of scapular body Ephraim Hanna M.D. Onset: 08/21/2017 Injury of tendon of the rotator cuff of Ephraim Hanna M.D. Onset: 2017 shoulder Social History Type Date Description Comments Sex Unknown ETOH Use Drinks Alcoholic Beverages Occasionally Tobacco Use Start: Unknown Patient has never smoked Recreational Drug Use Denies Drug Use Smoking Status Reviewed: 09/10/18 Patient has never smoked Exercise Type/Frequency Exercises sporadically Allergies, Adverse Reactions, Alerts Active Allergies Reaction Severity Comments Date Verapamil 08/18/2015 IVP Dye 08/18/2015 Calcium Channel Blockers 07/10/2017 Medications Active Medications SIG Qnty Indications Ordering Date Provider Hydralazine HCL 1 by mouth three 270tabs I10 Qutaybeh S. 10/26/2017 25mg times/day Blanca Keith Tablets Acebutolol HCL 2 tablets in the Unknown 05/27/2017 200mg morning and 1 Capsules tablet at night. Acetaminophen 1-2 tabs 3x a Unknown 05/27/2017 500mg day as needed Tablets Aspirin Ec 1 by mouth every Unknown 81mg Tablets day DR Obando 1 by mouth q hs Unknown 50mg Tablets Warfarin Sodium take as directed Unknown 5mg 09/19/17 present Tablets dose 7.5mg 3x/week 5 mg Row Immunizations Description No Information Available Vital Signs Date Vital Result Comment 09/10/2018 10:38am Height 63 inches 5'3" Weight 186.25 lb with shoes Heart Rate 80 /min BP Systolic Sitting 150 mmHg BP Diastolic Sitting 90 mmHg BP Systolic Standing 150 mmHg BP Diastolic Standing 90 mmHg BMI (Body Mass Index) 33.0 kg/m2 Ejection Fraction 45-45% 09/14/17 echo 11/02/2017 2:53pm Height 63 inches 5'3" Weight 171.00 lb Heart Rate 88 /min BP Systolic 136 mmHg BP Diastolic 84 mmHg Respiratory Rate 16 /min Body Temperature 97.8 F BMI (Body Mass Index) 30.3 kg/m2 Results Description No Information Available Procedures Description No Information Available Medical Devices Description No Information Available Encounters Description No Information Available Assessments Description No Information Available Plan of Treatment Future Appointment(s):08/04/2019 11:40 am - Fan Keith M.D. at [facility]09/10/2018 - Fan Keith M.D.I10 Essential (primary ) [id number] Atherosclerotic heart disease of [place] coronary artery withFollow up:one yr ovI25.5 Ischemic udctzmuayhivckX05.4 Non-St elevation ( Nstemi) myocardial fzrjkwxvioZ25.0 Nonrheumatic mitral (valve) hhtymgvuerxvvZ75.2 Mixed pfgzrnhjgfmwogT29.31 Abnormal electrocardiogram [ECG] [ EKG] Functional Status Description No Information Available Mental Status Description No Information Available Referrals Description No Information Available
--- OUTSIDE RECORDS SUMMARY | 2019-07-20 11:50 | XMS REPORT | Continuity of Care Document ---
:1945 External Reference #:[id number] Author Name Fan Keith M.D. (transmitted by agent of provider Haley oRsado) Address [address] [address] Care Team Providers Name Role Phone Dalila Carter DO - Family Care Team Information Intake Nurse Medicine Problems Active Problems Provider Date Candidal [...] Date Description Comments Sex Unknown ETOH Use Rarely consumes alcohol Tobacco Use Start: Unknown Patient has never smoked Recreational Drug Use Denies Drug Use Smoking Status Reviewed: 07/17/19 Patient has never smoked Exercise Type/Frequency Does not exercise Allergies, Adverse Reactions, Alerts Active Allergies Reaction Severity Comments Date Verapamil 08/18/2015 IVP Dye 08/18/2015 Calcium Channel Blockers 07/10/2017 Medications Active Medications SIG Qnty Indications Ordering Provider Date Acebutolol HCL 1 tablet by mouth Unknown 05/27/2017 200mg twice daily Capsules Acetaminophen 1-2 tabs 3x a day Unknown 05/27/2017 500mg Tablets as needed Aspirin Ec 1 by mouth every Unknown 81mg Tablets DR day Warfarin Sodium 5mg on Sunday, Unknown 5mg Tablets Sunday, Sunday, Sunday, and Sunday 7.5mg on Sunday and Zoloft 1 by mouth every Unknown 25mg Tablets evening Valsartan 1 by mouth every Unknown 80mg Tablets day Immunizations Description No Information Available Vital Signs Date Vital Result Comment 07/17/2019 3:03pm Height 63 inches 5'3" Weight 181.50 lb with shoes Heart Rate 72 /min left radial BP Systolic Sitting 148 mmHg Rue, reg cuff BP Diastolic Sitting 98 mmHg Rue, reg cuff BP Systolic Standing 150 mmHg Rue, reg cuff BP Diastolic Standing 100 mmHg Rue, reg cuff BMI (Body Mass Index) 32.1 kg/m2 Ejection Fraction 35-40% Echocardiogram 09/20/2018 09/10/2018 10:38am Height 63 inches 5'3" Weight 186.25 lb with shoes Heart Rate 80 /min BP Systolic Sitting 150 mmHg BP Diastolic Sitting 90 mmHg BP Systolic Standing 150 mmHg BP Diastolic Standing 90 mmHg BMI (Body Mass Index) 33.0 kg/m2 Ejection Fraction 45-45% 09/14/17 echo Results Description No Information Available Procedures Date Code Description Status 07/17/2019 74107 EKG Tracing & Interpretation Completed 06/01/2019 701767907 Diabetic Retinal Eye Exam Completed Medical Devices Description No Information Available Encounters Description No Information Available Assessments Date Code Description Provider 07/17/2019 I10 Essential (primary) hypertension Fan Keith M.D. 07/17/2019 I25.10 Atherosclerotic heart disease of [place] Fan Keith M.D. coronary artery with 07/17/2019 E78.2 Mixed hyperlipidemia Fan Keith M.D. 07/17/2019 R06.02 Shortness of breath Fan Keith M.D. 07/17/2019 R07.9 Chest pain, unspecified Fan Keith M.D. 07/17/2019 I49.1 Atrial premature depolarization Fan Keith M.D. Plan of Treatment Future Appointment(s):08/14/2019 2:20 pm - Kriss Amezquita NP at [facility]07/31/2019 9:30 am - Traveling ECHO 1 at [facility]2019 9:30 am - Fan Keith M.D. at [facility]07/17/2019 - Fan Keith M.D.I10 Essential (primary) xfijfsixtpwmJ89.10 Atherosclerotic heart disease of [place] coronary artery withFollow up:one yr ovE78.2 Mixed xxmyrbflejbalwQ70.02 Shortness of tmtjlbF86.9 Chest pain, unspecifiedNew Orders:Stress Test, Pharmacologic Nuclear (Lexiscan), Scheduled: 08/06/19Echocardiogram, Scheduled: 07/31/19Follow up:ov HEADMASTER/MISTRESS 4 weeks to discuss all voyqbG24.1 Atrial premature depolarizationNew Orders:Holter Monitor, Ordered : 07/17/19 Functional Status Description No Information Available Mental Status Description No Information Available Referrals Description No Information Available
[2019-07-20] MEDS ORDERED: Nitroglycerin TAB 0.4 MG* 0.4 MG TAB SL PRN (12:50)
[2019-07-20] MEDS ORDERED: Ondansetron INJ* 2 MG/ML VIAL IV PRN (12:50)
[2019-07-20] MEDS ORDERED: Nitroglycerin TAB 0.4 MG* 0.4 MG TAB SL ONE (12:50)
[2019-07-20] MEDS: ACEBUTOLOL 200 MG PO SCH ×2 (13:15→22:10)
[2019-07-20] MEDS ORDERED: LORazepam INJ* 2 MG/ML 1 ML VIAL IV PUSH PRN (14:58)
[2019-07-20] MEDS ORDERED: Lorazepam PYXIS KEY PRN (14:58)
--- NOTE | 2019-07-20 16:32 | HP ---
CC: Dr. Carter; Dr. Keith * ADMISSION HISTORY AND PHYSICAL: DATE OF ADMISSION: 07/20/19 PRIMARY CARE PROVIDER: Dr. Carter in [place]. MY ATTENDING WHILE IN THE HOSPITAL: Dr. Leo Ramirez.* (DICTATED BY MEDHAT DAVIS) OUTPATIENT GLUE SPECIALTY SUPERVISOR: Dr. Keith. CHIEF COMPLAINT: Chest pain intermittently for 1 week. HISTORY OF PRESENT ILLNESS: Ms. Chopra is a 73-year-old female with past medical history significant for coronary artery disease, status post stent into the LAD; paroxysmal atrial fibrillation; heart failure with reduced ejection fraction, EF most recently 35% to 40%, who presents to the emergency department at 5 a.m. this morning, the patient had onset of severe right sided chest pain, which decreased without intervention and turned into a band-like sensation around her chest, which she rates it a 3/10. The patient states this feels similar to when she previously had heart attack. The patient went to [place] [facility] and had nonischemic EKG and a negative troponin. The patient was found to be in atrial fibrillation at that time, which she has a known history of remotely. The patient was given a full dose aspirin and transferred from the [place] [facility] [place] [facility], where she had a repeat EKG, which is again nonischemic and the troponin is pending. The patient still has the band sensation in her chest. The patient denied any shortness of breath associated with this, did have some nausea this morning after she left the house. The patient has been under a lot of stress recently as she had what sounds to be a stroke in her left eye on 07/09/19. The patient had no changes in her medications at that time. The patient has been having severe back pain on and off for the past month, for which she has been taking Tylenol and ibuprofen. The patient has mainly been therapeutic on her INRs, but has had some high INRs, some low INRs, which she attributes to her taking ibuprofen. Due to concern for chest pain, we were asked to evaluate the patient for admission to the hospital. PAST MEDICAL HISTORY: 1. Coronary artery disease, status post stent in the left main. 2. Left breast cancer. 3. MVP. 4. Paroxysmal atrial fibrillation. 5. Depression. 6. Recent left eye stroke. 6. Heart failure with reduced ejection fraction, most recent 35% to 40%. 7. Back pain. PAST SURGICAL HISTORY: 1. Appendectomy. 2. Hysterectomy with salpingo-oophorectomy. 3. Ablation. 4. Stents. 5. Shoulder replacement. 6. Knee surgeries. MEDICATIONS: 1. Sertraline 25 mg p.o. daily. 2. Acebutolol 200 mg p.o. b.i.d. 3. Warfarin 7.5 mg p.o. Sunday, ; 5 mg p.o. Sunday, Sunday, Sunday , Sunday, Sunday. 4. Aspirin 81 mg p.o. daily. 5. Valsartan 80 mg p.o. daily. 6. Tylenol as needed. 7. Ibuprofen as needed. 8. Hydrocodone/acetaminophen 5/325 one tab p.o. t.i.d. as needed for pain. ALLERGIES: CALCIUM CHANNEL BLOCKERS, VERAPAMIL, IV DYE. FAMILY HISTORY: The patient's mother at 96 of old age. The patient's father at 62 of an OR. The patient has 3 living siblings who are healthy to her knowledge and a brother of cancer and a sister of cancer. SOCIAL HISTORY: The patient has never smoked, drank or used illicit drugs. The patient used to work as registered nurse at [employer]. The patient is and has 3 children. The patient's surrogate decision maker will be her daughter, Leigh Ann. REVIEW OF SYSTEMS: A 10-point review of systems is reviewed and negative except as noted in the HPI. Of note, the patient has had no symptoms of heart failure, but does not ambulate frequently due to her back pain and has gained 10 pounds over past year. PHYSICAL EXAMINATION GENERAL: The patient is a 73-year-old female, who appears stated age and sitting comfortably in bed, in no acute distress. VITAL SIGNS: At the time of evaluation, temperature 97.6, pulse rate 82, respiratory rate 15, oxygen saturation 94% on room air, blood pressure 144/94. HEENT: Head: Normocephalic, atraumatic. Sclerae anicteric. No conjunctival injection. Nasal mucosa moist. Oral mucosa moist. No pharyngeal erythema, discharge, or exudate. NECK: Supple, nontender. No lymphadenopathy. No carotid bruits auscultated. No JVD. CARDIAC: Irregularly irregular rhythm. No clicks, murmurs, gallops, or rubs. Pulses 2+ in bilateral dorsalis pedis, posterior tibialis, and radial areas. RESPIRATORY: Clear to auscultation bilaterally. No wheezes, rales, or rhonchi. Good air exchange bilaterally. ABDOMEN: Soft, nontender, and nondistended. Bowel sounds present, normoactive in all 4 quadrants. No hepatosplenomegaly. No abdominal bruits auscultated. No hepatojugular reflux. GENITOURINARY: No suprapubic or CVA tenderness. SKIN: Clean, dry, and intact. No rash. NEURO: Blind in the left eye. Cranial nerves II through XII otherwise intact. No other focal deficits. Alert and oriented x3. PSYCHIATRIC: Pleasant, cooperative. DIAGNOSTIC STUDIES/LAB DATA: From [place], sodium 138, potassium 4.2, chloride 102, carbon dioxide 27, anion gap 9, BUN 19, creatinine 1.1, bilirubin 1.1, magnesium 1.9, calcium 9.3, AST 24, ALT 21, alkaline phosphatase 83. Troponin I 0.01. BNP 359. Protein 9, albumin 4, globulin 5. INR 2.23. PTT 30.4. White blood cell count 7.3, 5.26, hemoglobin 14.7, platelet count 257. INR 0.97. Studies: EKG showed atrial fibrillation with rate of 65, QTc of 390, normal R wave progression, intraventricular conduction delay, normal axis. ASSESSMENT AND PLAN: IMPRESSION: Ms. Chopra is a 73-year-old female with past medical history significant for coronary artery disease, status post stenting; heart failure with reduced ejection fraction; paroxysmal atrial fibrillation, who presented to the emergency department with chest pain with concern for acute coronary syndrome and was found to be in atrial fibrillation. The patient will be admitted to the hospital for stress test and further cardiac risk stratification. 1. Chest pain. The patient's chest pain has worrisome findings for this being related to heart. This does not sound as if this has worrisome features for dissection or PE. CT of the chest will not performed. The patient is non- tachycardic, not hypotensive, not hypoxic. The patient's HEART score is 5, indicating moderate risk of major adverse cardiac event at 30 days up to 12% to 16%. The patient will be admitted to the hospital. The patient will have a nuclear medicine stress test tomorrow morning. The patient's blood pressure is slightly high. The patient will be given her home dose of beta-va as well as nitroglycerin at this point to assess to see if she can be made chest pain-free. 2. Coronary artery disease , status post stenting. Continue the patient's aspirin and statin. 3. Paroxysmal atrial fibrillation. The patient is currently in atrial fibrillation. Continue the patient's beta-va. This unlikely caused the patient's chest pain, as she is very well rate controlled. The patient's son will assess whether she is symptomatic from this. She has not felt as if she is going to pass out, but if she finds her exercise tolerance decreased while in atrial fibrillation, the patient will follow up with her procedures nurse and consular officer for assessment, cardioversion and possible repeat ablation. The patient is currently therapeutic on her warfarin. 4. Depression. Continue the patient's sertraline. 5. Back pain. Continue the patient's Percocet. The patient should avoid ibuprofen as this can be prothrombotic. 6. Hypertension. Continue the patient's acebutolol and valsartan. The patient is currently hypertensive and her blood pressure will be treated as above. 7. Disposition. She will be placed on observation. 8. FEN. The patient will have heart healthy diet, caffeine okay as tolerated. TIME SPENT: Approximately 60 minutes was spent on the admission of the patient , 30 of which was spent [id number] with the patient obtaining history and physical and discussing treatment plan. This plan has been discussed with my attending, Dr. Leo Ramirez and he is agreement. MEDHAT DAVIS [id number]/CPS #: [id number] SHEBA
[2019-07-20] MEDS: Acetaminophen TAB* 325 MG PO PRN ×2 (16:41→22:15)
[2019-07-20] MEDS: Warfarin TAB(*) 5 MG PO SCH (17:32)
[2019-07-20] MEDS: Sertraline* 50 MG TAB PO SCH (17:32)
[2019-07-21 06:05] LABS: ABS Basophils 0.1 10^3/ul (0-0.2); ABS Eosinophils 0.3 10^3/ul (0-0.6); ABS Monocytes 0.5 10^3/ul (0-0.8); ABS Neutrophils 2.7 10^3/ul (1.5-7.7); Eosinophil % 5.7 %; Hematocrit 39 % (35-47); Hemoglobin 13.3 g/dL (12.0-16.0); Lymphocyte % 35.8 %; Mean Corpuscular HGB Conc 34 g/dL (31-36); Mean Corpuscular Hemoglobin 29 pg (27-31); Mean Corpuscular Volume 84 fL (80-97); Mean Platelet Volume 10.2 fL (7.4-10.4); Nucleated Red Blood Cells % 0.2; Platelet Count 204 10^3/uL (150-450); Red Blood Count 4.62 10^6 /uL (3.70-4.87); Red Cell Distribution Width 15 % (10-15); White Blood Count 5.5 10^3/uL (3.5-10.8)
[2019-07-21 06:12] LABS: INR 2.34 (0.82-1.09)
[2019-07-21 06:25] LABS: BUN/Creatinine Ratio 22.2 (8-20); Calcium 9.1 mg/dL (8.6-10.3); EGFR African American 74.1 (>60); EGFR Non-African American 61.2 (>60); Magnesium 1.9 mg/dL (1.9-2.7)
[2019-07-21 07:10] LABS: Troponin I 0.01 ng/mL (<0.03)
[2019-07-21] MEDS ORDERED: Valsartan TAB* 80 MG PO SCH (09:00)
[2019-07-21] MEDS ORDERED: Aspirin EC TAB* 81 MG TAB.EC PO SCH (09:00)
[2019-07-21] MEDS ORDERED: Regadenoson* 0.4 MG/5 ML SYRINGE ONE (12:31)
[2019-07-21] MEDS: Acetaminophen TAB* 325 MG PO PRN (14:06)
[2019-07-21] MEDS: ACEBUTOLOL 200 MG PO SCH (17:13)
[2019-07-21] MEDS: Warfarin TAB(*) 5 MG PO SCH (17:55)
[2019-07-21] MEDS: Sertraline* 50 MG TAB PO SCH (17:55)
[2019-07-21 18:47] VITALS: BP 144/80
--- NOTE | 2019-07-21 22:03 | DS ---
CC: Dr. Carter; Dr. Keith * DISCHARGE SUMMARY: DATE OF ADMISSION: 07/20/19 DATE OF DISCHARGE: 07/21/19 PRIMARY CARE PROVIDER: Dr. Carter. SOCIAL SERVICES SPECIALIST: Dr. Keith. PRINCIPAL DIAGNOSIS: Non-cardiac chest pain. SECONDARY DIAGNOSES: 1. Coronary artery disease. 2. Paroxysmal atrial fibrillation. 3. Depression. 4. Recent stroke involving the left eye. 5. Heart failure with reduced ejection fraction. DISCHARGE MEDICATIONS: 1. Coumadin 5 mg p.o. Sunday, Sunday, Sunday, Sunday, Sunday; 7.5 mg Sunday, . 2. Valsartan 80 mg p.o. daily. 3. Sertraline 25 mg p.o. daily. 4. Aspirin 81 mg p.o. daily. 5. Tylenol 650 mg p.o. q.4 hours p.r.n. pain. 6. Acebutolol 200 mg p.o. b.i.d. HOSPITAL COURSE: Ms. Chopra is a 73-year-old female who has been under increased amount of stress recently. She was diagnosed with a stroke involving her left eye recently. The patient is also having significant back pain. Ultimately, she presented to the emergency room at [facility] with complaints of chest pain that has been off and on for the last 1 week prior. Given her history of coronary artery disease and heart failure with reduced ejection fraction, the patient was transferred to [facility] for evaluation. She was admitted and ruled out for an acute coronary syndrome with serial troponins and EKGs. The patient ultimately underwent Lexiscan nuclear stress test on the day of discharge. The stress test revealed a large fixed defect involving the septum extending into the anterior wall and inferior wall. This is unchanged from prior exam of 05/02/17. The etiology to her chest pain is unclear; however , I am suspicious that it maybe stress-induced. Additionally, the patient notes that her blood pressure typically at home is in the 150s-160s range. At the hospital, despite having her usual medications, her blood pressures have been ranging from 120s to 140s. We did discuss the need to take her home blood pressure cuff to the doctor's office to ensure that it is accurate and matches with the blood pressure obtained in the office. The patient has a follow- up appointment with Dr. Keith upcoming and with Dr. Carter on 07/28/19 at 1: 40 p.m. On the day of discharge, the patient was awake, alert, and oriented and sitting up in the bed in no acute distress. Cardiac exam reveals normal S1, S2. Regular rate and rhythm. Lungs are clear. Abdomen is soft, nontender, nondistended. ACTIVITY LEVEL: As tolerated. DIET: Heart-healthy. CONDITION ON DISCHARGE: Stable. TIME SPENT: Twenty five minutes was spent discharging this patient. [id number]/CPS #: [id number] MTDD
[2019-07-22] MEDS ORDERED: Warfarin TAB(*) 7.5 MG PO SCH (17:00)
== END 2019-07-21 18:15 | disposition home or self-care (01) ==
LOC: ED 11:34 → MEDTELE 12:51
PROVIDERS: ADMIT Internal Medicine; ATTEND Hospitalist
DX: R07.89 Other chest pain (principal); I25.10 Atherosclerotic heart disease of native coronary artery without angina pectoris; I48.0 Paroxysmal atrial fibrillation; F32.9 Major depressive disorder, single episode, unspecified; Z86.73 Personal history of transient ischemic attack (TIA), and cerebral infarction without residual deficits; I11.0 Hypertensive heart disease with heart failure; I50.20 Unspecified systolic (congestive) heart failure; M54.9 Dorsalgia, unspecified; Z79.01 Long term (current) use of anticoagulants; Z79.82 Long term (current) use of aspirin; Z79.899 Other long term (current) drug therapy; Z85.3 Personal history of malignant neoplasm of breast; R41.9 Unspecified symptoms and signs involving cognitive functions and awareness; I25.2 Old myocardial infarction; E78.00 Pure hypercholesterolemia, unspecified
CPT/HCPCS: 36415; 78452; 80048; 80061; 83036; 83735; 84484; 85025; 85610; 93005; 93017; 96374; 99284; A9270-GY; A9502; G0378; J2060; J2785